=== PATIENT | male | born 1985 | race Caucasian/White ===

== ENCOUNTER 2017-04-26 11:21 | Emergency (ER) | payer BC ==
[2017-04-26 13:58] LABS: APPEARANCE CLEAR (CLEAR); BILIRUBIN NEGATIVE (NEGATIVE); COLOR YELLOW (YELLOW); GLUCOSE NEGATIVE (NEGATIVE); KETONE NEGATIVE (NEGATIVE); LEUKOCYTE ESTERASE TRACE (NEGATIVE); NITRITE NEGATIVE (NEGATIVE); PROTEIN NEGATIVE (NEGATIVE); SPECIFIC GRAVITY 1.025 (1.005-1.020); UROBILINOGEN NORMAL (NORMAL)
[2017-04-26 13:59] LABS: BACTERIA FEW /hpf (NONE SEEN); EPITHELIAL CELLS OCC /hpf (0-5); MUCUS >1+ /lpf (NONE SEEN); RED CELLS - URINE RARE /hpf (0-5); WHITE CELLS - URINE 0-5 /hpf (0-5)
[2017-04-26 15:23] LABS: BASOPHILS 0.2 % (0-2); EOSINOPHILS 2.4 % (0-7); HEMATOCRIT 44.7 % (42.0-54.0); HEMOGLOBIN 15.9 g/dL (13.5-17.5); IMMATURE GRANULOCYTES 0.5 % (0-5); LYMPHOCYTES 23.8 % (15-50); MCH 30.6 pg (26.0-34.0); MCHC 35.6 g/dL (31.0-37.0); MCV 86.1 fL (80.0-100.0); MEAN PLATELET VOLUME 8.9 fL (7.4-10.4); MONOCYTES 9.8 % (2-11); NEUTROPHILS 63.3 % (40-80); PLATELET COUNT 227 10x3/uL (130-400); RBC 5.19 10x6/uL (4.20-6.10); RDW 13.5 % (11.5-14.5)
[2017-04-26 15:37] LABS: ALBUMIN 4.3 g/dL (3.4-5.0); ALKALINE PHOSPHATASE 90 U/L (46-116); ALT (SGPT) 29 U/L (10-68); CALC OSMOLALITY 283 mosm/kg (275-300); CALCIUM 9.7 mg/dL (8.5-10.1); CARBON DIOXIDE 25.7 mmol/L (21.0-32.0); CHLORIDE - SERUM 106 mmol/L (98-107); CREATININE - SERUM 0.9 mg/dL (0.6-1.3); GLUCOSE 96 mg/dL (74-106); POTASSIUM - SERUM 4.1 mmol/L (3.5-5.1); PROTEIN - SERUM 7.5 g/dL (6.4-8.2); SODIUM 142 mmol/L (136-145); UREA NITROGEN 15 mg/dL (7-18); eGFR NON AFRICAN AMERICAN > 90 mL/min (90-120)
== END 2017-04-26 18:50 | disposition home or self-care (01) ==
LOC: D.ER 11:21
PROVIDERS: Physician Assistant
DX: G51.0 Bell's palsy (principal); R53.1 Weakness; H53.2 Diplopia; R51 Headache

== ENCOUNTER 2019-04-19 20:06 | Emergency (ER) | payer BC ==
[~2019-04-19] VITALS: Ht 172.7 cm; Wt 81.8 kg
[2019-04-19 20:15] VITALS: Ht 172.7 cm; Wt 81.8 kg
[2019-04-19] MEDS ORDERED: ULTRAM50 MG PO (22:21)
[2019-04-19 22:39] VITALS: BP 133/79
== END 2019-04-19 22:39 | disposition home or self-care (01) ==
LOC: D.ER 20:06
DX: S20.212A Contusion of left front wall of thorax, initial encounter (principal); S50.02XA Contusion of left elbow, initial encounter; W55.12XA Struck by horse, initial encounter; Y93.89 Activity, other specified; Y92.89 Other specified places as the place of occurrence of the external cause; S53.402A Unspecified sprain of left elbow, initial encounter

== ENCOUNTER → 2019-05-16 12:19 | Outpatient (CLI) | payer BC ==
[2019-04-19 20:15] VITALS: BMI 27.4
[~2019-05-16 12:19] MED LIST: ULTRAM50 MG PO
== END | disposition home or self-care (01) ==
LOC: D.MRI 12:19
PROVIDERS: ATTEND Orthopaedic Surgery
DX: M77.02 Medial epicondylitis, left elbow (principal)